=== PATIENT | male | born 1930 | race Caucasian/White ===

== ENCOUNTER 2016-10-28 10:59 | Emergency (ER) | payer MEDICARE, OTHER ==
[~2016-10-28] VITALS: Ht 182.9 cm; Wt 79.5 kg
[~2016-10-28 10:59] MED LIST: ASPI-496 PO; OMEG1CAP23 PO
[2016-10-28 11:05] VITALS: BP 145/76
== END 2016-10-28 11:53 | disposition left against medical advice (07) ==
LOC: ED 11:47
DX: R05 Cough (principal)
CPT/HCPCS: 99281